=== PATIENT | female | born 1995 | race Caucasian/White ===

== ENCOUNTER 2018-06-27 20:10 | Emergency (ER) | payer OTHER ==
[~2018-06-27] VITALS: Ht 160 cm; Wt 64.4 kg
[2018-06-27 20:12] VITALS: BP 137/91
== END 2018-06-27 21:16 | disposition home or self-care (01) ==
LOC: ER 20:19
DX: L25.9 Unspecified contact dermatitis, unspecified cause (principal); F32.9 Major depressive disorder, single episode, unspecified; Z88.1 Allergy status to other antibiotic agents
CPT/HCPCS: 99281; A4606; Z7610; Z7502